=== PATIENT | male | born 1970 | race Caucasian/White ===

== ENCOUNTER 2020-01-01 06:33 | Inpatient (IN) | payer OTHER ==
[~2020-01-01] VITALS: Ht 170.2 cm; Wt 89.4 kg
[2020-01-01] VITALS (8 sets, daily range): BP systolic 102–144; BP diastolic 44–98
--- NOTE | ~2020-01-01 | EMS ---
[facility] [address] [place] [address] EMS Patient Care Report Name: CANDACE LU Room #: REG JOYCE Min#: [id number] Admission: 01/01/20 Attend Phys: Discharge: Date of : 74 Report #: [id number] THIS REPORT FOR: //name// Report Transmitted: 01/01/2020 07:46 EMS Care Summary [place], [place]/[facility] Incident [id number] @ 01/01/2020 05:56 Incident Location [facility] [address] [place] [address] Patient CANDACE LU JR Male, 49 Years 1970 Patient Address [address] [place] [address] Patient History Gastro-Esophageal Reflux Disease (GERD), Patient Allergies No known allergies, Patient Medications None Reported, Chief Complaint Short of Breath Disposition Transported No Lights/[place] Dispatch Reason Breathing Problem Transported To [facility] Narrative Arrived on the scene for a 49y/o male that is standing in the driveway. Pt said that he woke up around 0230 this morning to use the restroom and when he finished and went back to bed, he was having a hard time breathing. Pt said that he tried some Tums and Betty Met[place] with no relief. Pt said that he fell [facility] [address] [place] [address] EMS Patient Care Report Name: CANDACE LU Room #: REG M[place]le#: [id number] Admission: 01/01/20 Attend Phys: Discharge: Date of : 74 Report #: [id number] asleep and woke up again about 30 minutes later and was still feeling short of breath. Pt said that he tried to wait it out and see if it would go away but it didn't See Pt Assessment SOA See Flow Chart. Pt walked to the ambulance as we arrived. Transported to the hospital with zero change or incidents. Pt walked into the hospital and to his ER room. Transferred care to receiving facility. Initial Vitals @06:11P: 96,R: 24,BP: 144/93,Pain: 2/10,GCS: 15,SpO2: 94,Revised Trauma: 12, @06:04P: 109,R: 24,BP: 143/88,Pain: 2/10,GCS: 15,SpO2: 94,Revised Trauma: 12, Assessments @06:01MENTAL:Person Oriented,Time Oriented,Event Oriented,Place Oriented,SKIN:HEENT:Head/Face: No Abnormalities,Eyes: No Abnormalities,Neck/Airway: No Abnormalities,LUNG SOUNDS:General: Other,Left Upper: No Abnormalities,Right Upper: No Abnormalities,Left Lower: No Abnormalities,Right Lower: No Abnormalities,ABDOMEN:General: Other,Left Upper: No Abnormalities,Right Upper: No Abnormalities,Left Lower: No Abnormalities,Right Lower: No Abnormalities,PELVIS//GI:No Abnormalities,EXTREMITIES:Left Arm: No Abnormalities,Right Arm: No Abnormalities,Left Leg: No Abnormalities,Right Leg: No Abnormalities,PULSE:Radial: 2+ Normal,NEURO:No Abnormalities, Impression Acute Respiratory Distress (Dyspnea) Procedures @06:01ALS AssessmentResponse: UnchangedSucceeded Timeline 05:54,Call Received 05:54,Dispatch Notified 05:56,Dispatched 05:57,En Route 06:01,On Scene 06:01,At Patient 06:01,ALS Assessment,Response: UnchangedSucceeded, 06:04,BP: 143/88 M,PULSE: 109,RR: 24 R,SPO2: 94 Ox,ETCO2: ,BG: ,PAIN: 2,GCS: 15, 06:11,BP: 144/93 M,PULSE: 96,RR: 24 R,SPO2: 94 Ox,ETCO2: ,BG: ,PAIN: 2,GCS: 15, 06:17,Depart Scene [address] [address] EMS Patient Care Report Name: CANDACE LU Room #: REG JOYCE Min#: [id number] Admission: 01/01/20 Attend Phys: Discharge: Date of : 74 Report #: [id number] 06:28,At Destination 06:50,Call Closed Disclaimer v1.1 Copyright 2020 [email or web address] This EMS Care Summary contains data elements from the applicable legal record (which may be displayed differently). It is designed to provide pertinent information for the following purposes: continuity of care, clinical quality, and state data reporting. The complete legal record is available to ED staff and administrators of the receiving hospital in [facility]'s Patient Tracker. All data is provided "as is."
[2020-01-01] MEDS ORDERED: TUMS300 MG PO ×2 (06:46→11:03)
[2020-01-01 07:02] LABS: ABSOLUTE NEUTROPHILS 6.8 thou/uL (1.4-8.2); BASOPHILS 0.7 % (0.0-2.0); HEMOGLOBIN 15.2 gm/dL (14.0-18.0); LYMPHOCYTES 13.7 % (24.0-44.0); MCH 31.3 pg (26.0-34.0); MCHC 33.7 g/dL (28.0-37.0); MCV 92.9 fL (80.0-100.0); MONOCYTES 9.7 % (1.0-8.0); PLATELET COUNT 250 thou/uL (150-400); POLYS 72.9 % (36.0-66.0); RBC 4.84 mil/uL (4.50-6.00); RDW 14.2 % (10.5-14.5); WBC 9.3 thou/uL (4.0-11.0)
[2020-01-01 07:16] LABS: ANION GAP 7 mmol/L (7-16); BUN 21 mg/dL (7-18); CALCIUM 8.5 mg/dL (8.5-10.1); CHLORIDE 105 mmol/L (98-107); CO2 32 mmol/L (21-32); CREATININE 1.2 mg/dL (0.7-1.3); GLUCOSE 118 mg/dL (74-106); POTASSIUM 3.9 mmol/L (3.5-5.1); SODIUM 144 mmol/L (136-145)
[2020-01-01 07:29] LABS: ALBUMIN 3.5 g/dL (3.4-5.0); SGOT 20 U/L (15-37); SGPT 26 U/L (30-65); TOTAL BILIRUBIN 0.6 mg/dL (<0.1-1.0); TOTAL PROTEIN 7.1 g/dL (6.4-8.2); TROPONIN-I <0.06 ng/mL (<0.06)
--- NOTE | 2020-01-01 08:37 | EKG ---
[facility] [place] [address] ELECTROCARDIOGRAM REPORT Name: CANDACE LU Room #: REG [facility]..#: [id number] Admission: 01/01/20 Attend Phys: Discharge: Date of : 74 Report #: [id number] THIS REPORT FOR: cc: PAVAN - Kathrine family physician/PCP PAVAN - Kathrine family physician/PCP Leonel Kaba MD [facility] THIS REPORT FOR: //name// [facility] ED Test Date: 2020-01-01 Test Time: 06:40:20 Pat Name: CANDACE LU Department: Room: Gender: Class A Lineman: : 1970 Requested By: Murali Greene Order Number: [id number] MD: Leonel Kaba Measurements Intervals [place] Rate: 102 P: 50 OK: 170 QRS: -20 QRSD: 126 T: 122 QT: 366 QTc: 477 Interpretive Statements Sinus tachycardia Multiple ventricular premature complexes Left atrial enlargement Nonspecific intraventricular conduction delay ST and T wave abnormality, consider lateral ischemia No previous ECG available for comparison Electronically Signed On 01-01-2020 8:36:12 CDT by Leonel Kaba [email or web address] <ELECTRONICALLY SIGNED> By: Leonel Kaba MD, [facility] 01/01/20 0836 0640 Leonel Kaba MD, [facility] /EPI
--- NOTE | 2020-01-01 08:39 | EKG ---
[facility] [place] [address] ELECTROCARDIOGRAM REPORT Name: CANDACE LU Room #: REG [facility]..#: [id number] Admission: 01/01/20 Attend Phys: Discharge: Date of : 74 Report #: [id number] THIS REPORT FOR: cc: PAVAN - Kathrine family physician/PCP PAVAN - Kathrine family physician/PCP Leonel Kaba MD [facility] THIS REPORT FOR: //name// [facility] ED Test Date: 2020-01-01 Test Time: 07:22:24 Pat Name: CANDACE LU Department: Room: Gender: Illusionist: : 1970 Requested By: Murali Greene Order Number: [id number] MD: Leonel Kaba Measurements Intervals [place] Rate: 96 P: 47 NH: 164 QRS: -21 QRSD: 126 T: 119 QT: 375 QTc: 474 Interpretive Statements Sinus rhythm Left atrial enlargement Nonspecific intraventricular conduction delay ST and T wave abnormality, consider lateral ischemia No previous ECG available for comparison Electronically Signed On 01-01-2020 8:38:15 CDT by Leonel Kaba [email or web address] <ELECTRONICALLY SIGNED> By: Leonel Kaba MD, [facility] 01/01/2038 1 1 Leonel Kaba MD, [facility] /EPI
[2020-01-01 08:46] LABS: BE(vivo) 1.3 mmol/L (-2 to +3); HCO3 27.5 mmol/L (22.0-26.0); PCO2 VENOUS 49.3 mmHg (41.0-51.0); PO2 VENOUS 39.1 mmHg (35.0-45.0)
[2020-01-01] MEDS ORDERED: TUMS200 MG PO (10:44)
--- NOTE | 2020-01-01 14:58 | NUR ---
Assumed care approx 1010 this shift. Pt admitted from ER to unit 3w. Pt alert and oriented x4. Pt denies chest pain or shortness of breath upon arrival. Consents signed and placed in chart. Tele placed on pt per orders. Medications given per orders. COVID-[address] Jin notified. Pt to be transferred to med/surg tele per Dr. Jin. Pt slowly progressing towards plan of care goals. Will continue to monitor.
--- NOTE | 2020-01-01 18:45 | NUR ---
PT CARE ASSUMED AT 1800. PT ASSESSMENT CHARTED. SCD'S ON AND RUNNING. VSS. PT DENIES PAIN. PT COMPLAINED OF EARLIER SOA.
[2020-01-02 00:45] VITALS: BP 117/72
[2020-01-02 04:45] VITALS: BP 113/71
--- NOTE | 2020-01-02 05:01 | NUR ---
PATIENT AOX4. DENIES NAUSEA, VOMITING, AND DIARRHEA. PT SLEPT THROUGH THE NIGHT. VSS. NO EVENTS OVERNIGHT. LOOKING FORWARD TO ECHO THIS MORNING. NO FURTHER CONCERNS. WILL CONTINUE WITH CURRENT POC.
[2020-01-02 05:12] LABS: HEMATOCRIT 45.5 % (42.0-52.0); HEMOGLOBIN 15.2 gm/dL (14.0-18.0); MCH 31.5 pg (26.0-34.0); MCHC 33.3 g/dL (28.0-37.0); MCV 94.5 fL (80.0-100.0); RBC 4.81 mil/uL (4.50-6.00); RDW 14.1 % (10.5-14.5); WBC 6.1 thou/uL (4.0-11.0)
[2020-01-02 05:43] LABS: ANION GAP 7 mmol/L (7-16); BUN 24 mg/dL (7-18); CALCIUM 9.2 mg/dL (8.5-10.1); CHLORIDE 103 mmol/L (98-107); CO2 31 mmol/L (21-32); CREATININE 1.3 mg/dL (0.7-1.3); GLUCOSE 108 mg/dL (74-106); MAGNESIUM 2.1 mg/dL (1.8-2.4); SODIUM 141 mmol/L (136-145); TROPONIN-I <0.06 ng/mL (<0.06)
[2020-01-02 08:03] VITALS: BP 110/71
--- NOTE | 2020-01-02 10:13 | 2DMMODE ---
[facility] [place] [address] 2 D/M-MODE ECHOCARDIOGRAM Name: CANDACE LU Room #: 209-P ADM IN M.R.#: [id number] Admission: 01/01/20 Attend Phys: Rey Jin MD Discharge: Date of : 74 Report #: [id number] THIS REPORT FOR: cc: PAVAN - Kathrine family physician/PCP PAVAN - No family physician/PCP Leonel Kaba MD [facility] ~ APPROVED REPORT Study performed: 01/02/2020 08:44:29 EXAM: Comprehensive 2D, Doppler, and color-flow Echocardiogram Patient Location: Bedside Room #: 209 Status: routine BSA: 2.03 HR: 75 bpm BP: 113/71 mmHg Rhythm: Regular Other Information Study Quality: Excellent Indications Shortness of breath. Patient states history of "enlarged heart". 2D Dimensions RVDd: 43.85 mm IVSd: 9.34 (7-11mm) LVOT Diam: 25.20 (18-24mm) LVDd: 77.63 mm PWd: 10.01 (7-11mm) Ascending Ao: 31.10 (22-36mm) LVDs: 72.52 (25-40mm) Aortic Root: 40.95 mm Volumes Left Atrial Volume (Systole) Single Plane 4CH: 102.70 mL Single Plane 2CH: 100.72 mL LA ESV Index: 55.00 mL/m2 Aortic Valve AoV Peak Vicente.: 1.10 m/s AO Peak Gr.: 4.81 mmHg LVOT Max P.40 mmHg LVOT Max V: 0.59 m/s CHAO Vmax: 2.69 cm2 [facility] [place] [address] 2 D/M-MODE ECHOCARDIOGRAM Name: CANDACE LU Room #: 209-P ADM IN M.R.#: [id number] Admission: 01/01/20 Attend Phys: Rey Jin MD Discharge: Date of : 74 Report #: [id number] Pulmonary Valve PV Peak Vicente.: 0.57 m/s PV Peak Gr.: 1.29 mmHg Pulmonary Vein P Vein S: 0.25 m/s P Vein A: 0.29 m/s P Vein D: 0.77 m/s P Vein A Dur.: 87.7 msec P Vein S/D Ratio: 0.32 Tricuspid Valve RAP Estimate: 5.00 mmHg Left Ventricle Left ventricle is severely dilated. There is global hypokinesis of the left ventricle. There is normal left ventricular wall thickness. Left ventricular systolic function is severely decreased. False tendon at LV apex. Cannot rule out thrombus. LVEF 25%. This study is not technically sufficient to allow evaluation of the LV diastolic function. Right Ventricle The right ventricle is normal size. The right ventricular systolic function is normal. Atria Left atrium is severely dilated. Small degree of shunting consistent with patent foramen ovale. The right atrium size is normal. Aortic Valve The aortic valve is normal in structure. Mild to moderate aortic regurgitation. There is no aortic valvular stenosis. Mitral Valve The mitral valve is normal in structure. Mild mitral regurgitation. No evidence of mitral valve stenosis. Tricuspid Valve The tricuspid valve is normal in structure. There is no tricuspid valve regurgitation noted. Unable to assess PA pressure. Pulmonic Valve The pulmonary valve is normal in structure. Mild pulmonic regurgitation. Great Vessels Aortic root is mildly dilated at 4.1cm. The ascending aorta is normal in size. IVC is normal in size and collapses >50% with [facility] [address] [place] [address] 2 D/M-MODE ECHOCARDIOGRAM Name: CANDACE LU Room #: 209-P ADM IN M.R.#: [id number] Admission: 01/01/20 Attend Phys: Rey Jin MD Discharge: Date of : 74 Report #: [id number] inspiration. Pericardium There is no pericardial effusion. <Conclusion> Left ventricular systolic function is severely decreased. LV enlargement There is global hypokinesis of the left ventricle. False tendon at LV apex. Cannot rule out thrombus. LVEF 25%. Small degree of shunting consistent with patent foramen ovale. Left atrium is severely dilated. The aortic valve is normal in structure. Mild to moderate aortic regurgitation, no stenosis. The mitral valve is normal in structure. Mild mitral regurgitation. Unable to assess pulmonary artery pressure. There is no pericardial effusion. <ELECTRONICALLY SIGNED> By: Leonel Kaba MD, FACC 01/02/20 1011 1011 1011 Leonel Kaba MD, FAC /INF
[2020-01-02 12:07] VITALS: BP 103/71
--- NOTE | 2020-01-02 13:16 | NUR ---
ORDERS RECEIVED FOR EVAL AND TREAT. SPOKE WITH Pt WHO STATES HE IS HAVING NO DIFFICULTY WITH MOBILITY, DOES NOT FEEL WEAK AND HAS BEEN UP AD TANG IN HIS ROOM. OBSERVED Pt STAND AND AMBULATE IN THE ROOM WITHOUT DIFFICULTY. Pt DECLINING A FORMAL P.T. EVAL BUT APPEARS SAFE FOR HOME
--- NOTE | 2020-01-02 16:27 | NUR ---
Sp with patient via phone he admits for chest pain. 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 Patient reports his residency is in [place] but he might be in area for 2-3 years possibly longer. He reported he [place] end up just staying [place] likes the city. Patient does not have health insurance. He does not have a PCP. Faxed [facility] to patient and alerted RN to review.
[2020-01-02 16:59] VITALS: BP 109/66
--- NOTE | 2020-01-02 17:52 | NUR ---
RECEIVED PT'S CARE AROUND 0730; PT. ON BED; RESTING WITH EYES CLOSED; EQUAL CHEST RISING NOTICED; DURING AM ASSESSMENT AOX4; NO C/O PAIN; AM MEDICATION GIVEN; EDUCATED ABOUT URINE MEASUREMENT; ST. UNDERSTANDING; EDUCATED ABOUT FLUID RESTRICTIONS; ST. UNDERSTANDING; ECHO PERFORMED; PHYSICIAN NOTIFIED WHEN RESULTS IN THE SYSTEM; ORDERS ON PLACE; CONSENT SIGNED AFTER PHYSICIAN ROUNDING ON PT.; SR ON THE MONITOR; ASSESSMENT CHARGED; FOLLOWING POC; WILL PASS ON REPORT;
[2020-01-02 20:20] VITALS: BP 121/73
[2020-01-03] VITALS (11 sets, daily range): BP systolic 84–105; BP diastolic 52–74
--- NOTE | 2020-01-03 05:35 | NUR ---
PT ALERT AND ORIENTED. NO CONCERNS OVERNIGHT. SOFT BP THIS MORNING. PT CONSENT FOR HEART CATH SIGNED. PT DENIES CHEST PAIN, NAUSEA OR VOMITNG. SR/SB ON THE MONITOR. TOOK A SHOWER LAST NIGHT. WILLC CONTINUE WITH POC.
[2020-01-03 08:29] LABS: ALBUMIN 3.6 g/dL (3.4-5.0); CREATININE 1.1 mg/dL (0.7-1.3); POTASSIUM 4.7 mmol/L (3.5-5.1); TOTAL BILIRUBIN 0.5 mg/dL (<0.1-1.0); TOTAL PROTEIN 7.5 g/dL (6.4-8.2)
--- NOTE | 2020-01-03 12:10 | CATHLAB ---
[facility] [place] [address] INVASIVE PROCEDURE REPORT Name: CANDACE LU Room #: 209-P ADM IN M.R.#: [id number] Admission: 01/01/20 Attend Phys: Rey Jin MD Discharge: Date of : 74 Report #: [id number] THIS REPORT FOR: cc: FAM - No family physician/PCP FAM - No family physician/PCP Ethan Gardner MD [facility] ~ APPROVED REPORT Study performed: 01/03/2020 09:47:27 Patient Details Patient Status: In-Patient Room #: 209 The patient is a 49 year-old male Event Personnel Ethan Gardner Electrical And Electronic Assembler, Amaya Cervantes RN, Nilda Acevedo RTR, LENS FABRICATING MACHINE TENDER Monitor, Alcon Bryant RTR Scrub Procedures Performed Art Access - R femoral artery* Jimi Access - R femoral vein Right and Left Heart Cath w/or w/o Coronarie [id number] [facility] Aortogram Abdominal Peripheral Angio [id number] 33713 Initial Mod Sed Same Phys/QHP Gr5y 843416 , 32219 Mod Sed Same Phys/QHP Ea 979823 Hemostasis with Manual pressure Hemostasis w/ Mynx Indication Cardiomyopathy Procedure Narrative The Right Groin^ was infiltrated with 1% Lidocaine subcutaneous anesthesia. A PINNACLE 6FR Sheath #[id number] sheath was inserted into the RFA. Coronary angiography was performed using coronary diagnostic catheters. The right coronary system was accessed and visualized with a JR4 catheter. The left coronary system was accessed and visualized with a JL4 catheter. The left ventricle was accessed and visualized with a pigtail catheter. Left ventriculogram was performed in 30 degree projection. An aortogram of the abdominal aorta was performed. Pre-demployment femoral angiogram was performed . Closure device was deployed with a 6 Fr MynxControl. Hemostasis was obtained with manual pressure following sheath removal without any complications. The patient tolerated the procedure well and there were no complications associated with the procedure. There was no hematoma. [facility] [address] [place] [address] INVASIVE PROCEDURE REPORT Name: CANDACE LU Room #: 209-P [facility] ..#: [id number] Admission: 01/01/20 Attend Phys: Rey Jin MD Discharge: Date of : 74 Report #: [id number] Intraoperative Conscious Sedation Sedation start time: 10:03 Case end Time: 10:44 Fentanyl 100 mcg Versed 1 mg Fluoro Time: 3.02 minutes Dose: DAP 4313.70 cGycm2 433.3 mGy Contrast Type and Amount: Omnipaque 110 ml Hemodynamics The right atrial mean pressure is 15 mmHg. The right ventricular pressure is 45/9 mmHg. The pulmonary artery pressure is 36/21 mmHg with a mean of 29 mmHg. The mean pulmonary capillary wedge pressure is 23 mmHg. The aortic pressure is 93/62 mmHg with a mean of 76 mmHg. The left ventricular pressure is 92/11 mmHg with a mean of mmHg. The left ventricular end diastolic pressure is 28 mmHg. The cardiac output using thermo method is 2.80 L/min. The cardiac index using thermo method is 1.39 L/min/m2. Conclusion #1. Successful right heart catheterization with cardiac output by thermodilution. See above hemodynamics. #2 moderate left ventricular dilatation with severe global hypokinesis EF 15% range #3 normal coronary anatomy in a right dominant system. No occlusive disease wide patency of the coronary anatomy is noted. #4 abdominal aortogram is intact without aneurysm or stenosis. Recommendation plan: These findings are consistent with an idiopathic cardiomyopathy. May be alcohol related by patient's history. Significant volume overload persist. Continue aggressive diuresis. Transfer back to CCU <ELECTRONICALLY SIGNED> By: Ethan Gardner MD, FACC 01/03/20 1208 1208 07 Ethan Gardner MD, FACC /INF
--- NOTE | 2020-01-03 17:46 | NUR ---
RECEIVED PT'S CARE AROUND 0715; PT. ON BED; RESTING WITH EYES CLOSED; EQUAL CHEST RISING NOTICED; SR ON THE MONITOR; DURING AM ASSESSMENT ASKED IF CAN HAVE SOME WATER; REMAINED ABOUT NPO DUE TO CARDIAC CATH; ST. UNDERSTANDING; LABS WITHDRAW; SENT TO LAB; PARTIAL AM MEDICATIONS GIVEN; GONE FOR PROCEDURE ABOUT 0930; BACK AROUN 1100; R. GROIN C/D/I; NO HEMATOMA THROUGH THE DAY; EDUCATED ABOUT HOLDING PRESSURE WHEN COUGHING OR LAUGHING TO HARD; ST. UNDERSTANDING; EDUCATED ABOUT CALLING IMMEDIATELY IF PAIN OR NOTICE GROIN OVER AREA; ST. UNDERSTANDING; SBP BETWEEN LATE 80-90s; PT. NO IN DISTRESS; DR. DAMIAN NOTIFIED DURING ROUNDINGS; NO NEW ORDERS; OK TO MANTAIN SBP ON THE 90s; BED REST FOR 3H; SB WHILE RESTING; DURING THE AFTERNOON PT. REQUESTED TO TALK WITH PHYSICIAN DUE TO HAVE QUESTIONS ABOUT PROCEDURE; NOTIFIED ABOUT DR. DAMIAN ROUNDED EARLIER ON THE DAY; ASKED IF NEED TO TALK IMMEDIATELY; DENIES; ST. ABLE TO WAIT FOR TOMORROW, 01/03/2020, & ASK QUESTIONS; ASSESSMENT CHARGED; FOLLOWING POC; WILL PASS ON REPORT;
[2020-01-04] VITALS (7 sets, daily range): BP systolic 84–108; BP diastolic 52–74
--- NOTE | 2020-01-04 06:55 | NUR ---
PT S/P CARDIAC CATH YESTERDAY. GROIN SITE C/D/I. NO EVENTS OVERNIGHT. PT REMAINS SR ON MONITOR. VSS. PT LOOK FORWARD TO DC TODAY. NO FURTHER CONCERNS. WILL CONTINUE TO MONITOR.
--- NOTE | 2020-01-04 14:56 | NUR ---
DC instructions updated. Pt likely going back to [place] to live with family as he is not able to return to work. disability and medicaid applications recommended. Chart copy requested to be sent with the pt as he does not have a pcp her or in [place] and will need to access medical followup. Medications from the [employer] $4 list recommended as he could get those here or in [place]. Pt is indep with gait and adl's. No cm interventions indicated.
--- NOTE | 2020-01-04 16:36 | NUR ---
PT CARE ASSUMED AT 0700. A&Ox4. PT IS UP AT TANG INDEPENDENTLY IN THE ROOM. AT DISCHARGE CALL CASEMA[facility]GMENT TO FILL A 30 DAY SUPPLY OF DISCHARGE MEDICATIONS FOR PT. FLUID RESTRICTIONS OF 1600ML. DAILY WEIGHT. IV PATENT WITH NO REDNESS OR EDEMA, SALINE LOCKED. NSR. PER DR. DAMIAN GIVE COREG UP TO 90 BP SYSTOLIC. WEARS 2L FOR COMFORT OVER NIGHT. GROIN SITE DRY AND INTACT FROM CARDIAC CATH YESTERDAY. CALL LIGHT IN REACH. WILL CONTINUE TO MONITOR.
[2020-01-05 00:45] VITALS: BP 141/49
[2020-01-05 03:49] LABS: CALCIUM 8.7 mg/dL (8.5-10.1); CREATININE 1.4 mg/dL (0.7-1.3); POTASSIUM 4.5 mmol/L (3.5-5.1)
[2020-01-05 04:45] VITALS: BP 88/54
--- NOTE | 2020-01-05 06:52 | NUR ---
ASSUME CARE 1900. PTSTABLE. BP SOFT/PT DENIES ANY DIZINESS. TOLERATES ACTIVITY WELL. UP AD TANG. SR ON MONITOR. ADEQUATE REST WITH NO DISTRESS NOTED THROUGH THE NIGHT. ASSESSMENT CHARTED. PROGRESSING WELL WITH POC. PLAN IS POSSIBLE DISCHARGE TODAY WITH [facility] X 30 DAYS FROM CASE MANAGEMENT. WILL CONTINUE TO MONITOR AND FOLLOW WITH POC
[2020-01-05] MEDS ORDERED: ASPIRIN325 PO (07:54)
[2020-01-05] MEDS ORDERED: COREG3.125 MG PO (07:54)
[2020-01-05] MEDS ORDERED: K-DUR 20 MEQ T20 MEQ PO (07:54)
[2020-01-05] MEDS ORDERED: TORSEMIDE20 MG PO (07:54)
[2020-01-05] MEDS ORDERED: LISINOPRIL5 MG PO (07:54)
[2020-01-05 08:00] VITALS: BP 86/53
[2020-01-05 13:40] VITALS: BP 104/70
[2020-01-05 16:30] VITALS: BP 101/64
--- NOTE | 2020-01-05 18:55 | NUR ---
PT A&OX4, VSS, DENIES PAIN. PATIENT BLOOD PRESSURE RUNNING SOFT, CARVEDILOL HELD, DOCTOR AWARE. PATIENT UP AD TANG, NO SIGNS OF DISTRESS. CATH SITE RIGHT GROIN C/D/I FLAT AND SOFT. PATIENT SINUS RHYTHM ON MONITOR. PATIENT CONTINUES ON 1500 FLLUID RESTRICTION. WILL CONTINUE TO MONITOR.
[2020-01-05 20:05] VITALS: BP 94/58
[2020-01-06 04:45] VITALS: BP 102/61
--- NOTE | 2020-01-06 08:43 | NUR ---
ASSUME CARE 1900. PT/VITALS STABLE. BP STILL RUNS SOFT BUT MAP IS > 60. SR ON MONITOR. DENIES ANY PAIN/DIZZINESS. UP AD TANG. ADEQUATE REST WITH NO DISTRESS NOTED. PROGRESSING WELL WITH POC. ASSESSMENT CHARTED. PLAN IS POSSIBLE DISCHARGE WITHIN 1-2 DAYS WITH MEDICATION FROM CASE MANAGEMENT.WILL JASWANTEU TO MONITOR AND FOLLOW WITH POC
[2020-01-06 16:24] VITALS: BP 103/63
--- NOTE | 2020-01-06 19:15 | NUR ---
Assumed patient care at 0715. Vital signs stable, LSCTA, abdomen soft and non-tender, BS x's 4; he denies pain. Patient compliant with medications and 1500cc fluid restriction. Alert and oriented x's 4; pleasant. Plan is to Discharge patient tomorrow. Report given to CHRISTO Damon.
[2020-01-06 19:35] VITALS: BP 97/62
--- NOTE | 2020-01-06 19:55 | NUR ---
PT CARE ASSUMED AT 1200. A&Ox4. PT UP AT TANG IN ROOM AND HALLWAY. PT SLEPT MOST OF THE AFTERNOON. VITALS STABLE. RUNNING NSR WITH BOUTS OF BBB. IV PATENT WITH NO REDNESS OR EDEMA, SALINE LOCKED. DAILY WEIGHT AT 0500 IF OVER 2 LBS WEIGHT GAIN NOTIFY CLAM BED LABORER FOR LASIX ORDERS. HAD 2 LOOSE STOOLS DUE TO LACTOSE INTOLERENCE. DIET UPDATED. FLUID RESTRICTIONS OF 1500ML. CALL CASE MANAGEMENT WHEN DISCHARGING SO THEY CAN GET HIS SCRIPTS AND FILL THEM WITH A 30 DAY SUPPLY BEFORE HE LEAVES. WHEN GIVING CARVEDILOL ONLY HOLD IF SYSTOLIC UNDER 90 PER CARDIOLOGY. WILL CONTINUE TO MONITOR. CALL LIGHT IN REACH.
[2020-01-07 00:16] VITALS: BP 93/64
[2020-01-07 04:45] VITALS: BP 92/58
--- NOTE | 2020-01-07 05:40 | NUR ---
PT A&o X4 ABLE TO MAKE NEEDS KNOWN. DENIES PAIN. UP AD TANG. 1500 FR. DENIED SOA THIS SHIFT. SOFT BPs. CALLS APPROPRIATELY.
[2020-01-07 07:30] VITALS: BP 104/67
--- NOTE | 2020-01-07 10:38 | NUR ---
PT ASSESSED, VSS, REVIEWED POC AND MEDICATIONS, PT VERBALIZED UNDERSTANDING, SPOKE WITH CM, PT WILL GO HOME AND GET CHEAP MEDS AT [facility], DR QUIROS AWARE, WILL PREPARE FOR DC.
[2020-01-07 11:30] VITALS: BP 94/58
[2020-01-07] MEDS ORDERED: ALTACE5 MG PO (14:18)
[2020-01-07] MEDS ORDERED: K-DUR10 MEQ PO (14:18)
[2020-01-07] MEDS ORDERED: DEMADEX20 MG PO (14:18)
[2020-01-07 15:02] VITALS: BP 84/52
--- NOTE | 2020-01-07 16:28 | NUR ---
DR QUIROS DISCHARGED PT, TELE AND IV REMOVED, REVIEWED DC INSTRUCTIONS WITH PT, HE VERBALIZED UNDERSTANDING OF THEM WELL PRESCRIPTIONS AND FOLLOW UP APPOINTMENTS. WILL FOLLOW UP WITH MEDICAID WELL. LEFT WITH SISTER IN LAW AND TOOK ALL BELONGINGS.
== END 2020-01-07 16:03 | disposition home or self-care (01) | DRG 286 ==
LOC: ER 06:33 → EROBS 09:23 → 2N 09:23 → 3W 09:53 → 2N 17:57
PROVIDERS: Emergency Medicine; Nurse Practitioner Adult Health; ADMIT Internal Medicine
PROC: B41F1ZZ Fluoroscopy of Right Lower Extremity Arteries using Low Osmolar Contrast (ICD-10-PCS; principal; 2020-01-03)
PROC: B4101ZZ Fluoroscopy of Abdominal Aorta using Low Osmolar Contrast (ICD-10-PCS; principal; 2020-01-03)
PROC: B2151ZZ Fluoroscopy of Left Heart using Low Osmolar Contrast (ICD-10-PCS; principal; 2020-01-03)
PROC: 4A023N8 Measurement of Cardiac Sampling and Pressure, Bilateral, Percutaneous Approach (ICD-10-PCS; principal; 2020-01-03)
PROC: B2111ZZ Fluoroscopy of Multiple Coronary Arteries using Low Osmolar Contrast (ICD-10-PCS; principal; 2020-01-03)
DX: I50.23 Acute on chronic systolic (congestive) heart failure (principal); J96.01 Acute respiratory failure with hypoxia; I42.6 Alcoholic cardiomyopathy; I95.9 Hypotension, unspecified; K21.9 Gastro-esophageal reflux disease without esophagitis; I35.1 Nonrheumatic aortic (valve) insufficiency; Z20.828 Contact with and (suspected) exposure to other viral communicable diseases; I25.10 Atherosclerotic heart disease of native coronary artery without angina pectoris; F17.210 Nicotine dependence, cigarettes, uncomplicated; Z79.82 Long term (current) use of aspirin; Z79.899 Other long term (current) drug therapy; Z83.3 Family history of diabetes mellitus; Z82.49 Family history of ischemic heart disease and other diseases of the circulatory system
CPT/HCPCS: 10081